=== PATIENT | male | born 1995 | race Caucasian/White ===

== ENCOUNTER 2022-06-18 13:20 | Emergency (ER) | payer OTHER, SELFPAY ==
[2022-06-18 13:26] VITALS: BP 174/97; PULSE 91; RESP 16; TEMP 36.4; O2SAT 98
--- NOTE | 2022-06-18 13:38 | ED.ABDPAIN ---
HPI - Abdominal Pain General Chief Complaint: Unspecified Stated Complaint: coughing blood/abdo pain Time Seen by Provider: 06/18/22 13:41 History of Present Illness HPI narrative: patient presents with abdominal pain. Patient reports taking 1000mg of ibuprofen daily for the past few weeks. Patient reports that he has spit up some bood tinged emesis at times. no large amounts no clots. no problems with diarhe and no constipation patient is trying to save his money for dental work to be done and is agreeable to decrease the amount of ibuprofen he takes on a daily basis. patient does not have a PCP and requests a list of providers taking new patients. Patient also declines transfer to emergency department at this time. Related Data Home Medications Medication Instructions Recorded Confirmed ibuprofen 600 mg tablet 1,000 mg PO DAILY DENTAL PAIN 06/18/22 06/18/22 Allergies Allergy/AdvReac Type Severity Reaction Status Date / Time No Known Allergies Allergy Verified 06/18/22 13:38 Review of Systems Review of Systems: CONSTITUTIONAL: Denies fever, chills, or sweats. EYES: Denies visual changes, redness, or discharge. ENT: Denies rhinorrhea, congestion, sore throat, or otalgia. CARDIOVASCULAR: Denies chest pain, palpitations, or edema. RESPIRATORY: Denies cough or dyspnea. GASTROINTESTINAL: Denies abdominal pain, nausea, vomiting, or diarrhea. GENITOURINARY: Denies dysuria or hematuria. SKIN: Denies rash or itching. MUSCULOSKELETAL: Denies back pain, joint pain, or myalgia. NEUROLOGIC: Denies headache, numbness, or weakness. PSYCHIATRIC: Denies anxiety or depression. PMFSH Comments At time of signature, agree with nursing past medical, surgical, social and family history. There is no relevant family history pertinent to the presenting complaint Exam Narrative: GENERAL: Well-appearing, well-nourished, and in no acute distress. HEAD: Normocephalic, atraumatic. EYES: PERRLA and EOMI. ENT: Nares clear, no rhinorrhea or epistaxis. Mucous membranes moist. NECK: Supple. CHEST: Clear to auscultation. No respiratory distress. HEART: Regular rate and rhythm. No murmur heard. Normal peripheral pulses. ABDOMEN: Soft, nondistended, normal active bowel sounds. mild tenderness luq no guarding no positive signs EXTREMITIES: Normal range of motion. No edema. SKIN: Warm, dry, no rash. NEURO: No focal deficits. Alert and oriented x3. Marcelle Coma Scale Eye Opening: Spontaneous 4 [place] Coma Scale Motor: Obeys Commands 6 [place] Coma Scale Verbal: Oriented 5 [place]irth Coma Scale Total 15 Course Course Level of Care: Express Care Visit Vital Signs Vital signs: Vital Signs Temperature 36.4 C 06/18/22 13:26 Pulse Rate 91 06/18/22 13:26 Respiratory Rate 16 06/18/22 13:26 Blood Pressure 174/97 H 06/18/22 13:26 Pulse Oximetry 98 06/18/22 13:26 Oxygen Delivery Room Air 06/18/22 13:26 Temperature 36.4 C 06/18/22 13:26 Pulse Rate 91 06/18/22 13:26 Respiratory Rate 16 06/18/22 13:26 Blood Pressure 174/97 H 06/18/22 13:26 Pulse Oximetry 98 06/18/22 13:26 Oxygen Delivery Room Air 06/18/22 13:26 Please GERARD schedule a followup visit with your personal physician for further evaluation and treatment. Including recheck and discussion of your blood pressure. If your symptoms persist, change or worsen significantly before you can contact your personal physician then please, without delay, go to the emergency department for further evaluation Patient declined transfer to emergency room. would like to try medication and receive list of pcp taking new patients in order to establish care. Discharge Plan Discharge Clinical Impression: Adverse effect of ibuprofen, Abdominal left upper quadrant tenderness Patient Disposition: Home, Self-Care Condition: Stable Instructions: Abdominal Pain (ED) Additional Instructions: medication as prescribed decrease ibuprofen usage avoid spicy, fri
== END 2022-06-18 14:01 | disposition home or self-care (01) ==
PROVIDERS: Emergency Provider Nurse Practitioner Family; PCP Emergency Medicine
DX: R10.12 Left upper quadrant pain (principal); T39.315A Adverse effect of propionic acid derivatives, initial encounter
CPT/HCPCS: 99213; G0463